=== PATIENT | female | born 1975 | race Asian ===

== ENCOUNTER 2024-03-25 08:35 | Day surgery (SDC) | payer OTHER ==
[2024-03-22 12:25] VITALS: BMI 23.4
[2024-03-25 10:46] VITALS: RESP 18
[2024-03-25 10:57] VITALS: BP 114/71; PULSE 56; TEMP 97.9
== END 2024-03-25 11:00 | disposition home or self-care (01) ==
LOC: FASU-ENDO 08:35
PROVIDERS: ATTEND Internal Medicine Gastroenterology
PROC: 0DJD8ZZ Inspection of Lower Intestinal Tract, Via Natural or Artificial Opening Endoscopic (ICD-10-PCS; principal; 2024-03-25 10:11)
DX: Z12.11 Encounter for screening for malignant neoplasm of colon (principal)